=== PATIENT | female | born 1970 | race Caucasian/White ===

== ENCOUNTER 2017-02-27 15:06 | Emergency (ER) | payer BC, OTHER ==
[~2017-02-27] VITALS: Ht 160 cm; Wt 81.6 kg
[2017-02-27 16:50] VITALS: BP 147/99
[2017-02-27] MEDS ORDERED: CYCLOBENZAPRINE HCL 10 MG TAB PO ONE (18:00)
[2017-02-27] MEDS ORDERED: KETOROLAC TROMETH 60MG/2ML VIAL IM ONE (18:00)
== END 2017-02-27 18:15 | disposition home or self-care (01) ==
LOC: ER 15:15
DX: M62.830 Muscle spasm of back (principal); R68.84 Jaw pain; J45.909 Unspecified asthma, uncomplicated; Z88.8 Allergy status to other drugs, medicaments and biological substances; V43.52XA Car driver injured in collision with other type car in traffic accident, initial encounter; Y93.89 Activity, other specified; Y92.89 Other specified places as the place of occurrence of the external cause; Y99.8 Other external cause status; Z90.710 Acquired absence of both cervix and uterus
CPT/HCPCS: 96372; 99283; J1885